=== PATIENT | female | born 2000 | race Two or more races ===

== ENCOUNTER 2024-08-16 13:32 | Emergency (ER) | payer MEDICAID, SELFPAY ==
[2024-08-16 13:47] VITALS: BP 115/72; PULSE 104; RESP 18; TEMP 36.6; O2SAT 98; BMI 17.4
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
--- NOTE | 2024-08-16 14:22 | PC.NURSE ---
NAx1 @[id number] for medication.
[2024-08-16] MEDS: ACETAMINOPHEN 325 MG TABLET 650 MG PO (14:52)
[2024-08-16] MEDS: CYCLObenzaPRINE 5 MG TABLET PO (14:52)
== END 2024-08-16 16:20 | disposition home or self-care (01) ==
PROVIDERS: Emergency Provider Emergency Medicine
DX: S13.4XXA Sprain of ligaments of cervical spine, initial encounter (principal); V43.52XA Car driver injured in collision with other type car in traffic accident, initial encounter
CPT/HCPCS: 72040; 99283; A9270